=== PATIENT | male | born 1955 | race Caucasian/White ===

== ENCOUNTER 2016-04-30 08:27 | Emergency (ER) | payer OTHER ==
[2016-04-30] MEDS ORDERED: ACETAMINOPHEN 325 MG TABLET PO STA (09:33)
[2016-04-30] MEDS ORDERED: ACETAMINOPHEN 325 MG TABLET PO ONE (09:37)
== END 2016-04-30 13:50 | disposition home or self-care (01) ==
DX: S06.0X0A Concussion without loss of consciousness, initial encounter (principal); S00.83XA Contusion of other part of head, initial encounter; M25.519 Pain in unspecified shoulder; M54.2 Cervicalgia; W00.1XXA Fall from stairs and steps due to ice and snow, initial encounter; R26.81 Unsteadiness on feet; R50.9 Fever, unspecified; R03.0 Elevated blood-pressure reading, without diagnosis of hypertension; F17.200 Nicotine dependence, unspecified, uncomplicated
CPT/HCPCS: 36415; 70450; 71020; 72125; 80048; 85025; 99283; 99284; A9270